=== PATIENT | female | born 1970 | race Caucasian/White ===

== ENCOUNTER 2018-05-14 15:41 | Outpatient (CLI) | payer OTHER ==
[2015-10-06 08:48] VITALS: BP 109/72
[2018-05-14 15:58] LABS: BASOPHILS % 1.3 (0.0-1.5); EOSINOPHILS % 5.6 % (0.0-6.8); MEAN CORPUSCULAR HEMOGLOBIN 30.8 pg (28.0-34.0); MONOCYTES % 5.9 % (0.0-11.0); NEUTROPHILS # 6.3 # k/uL (1.4-7.7)
[2018-05-14 16:12] LABS: eGFR (Non-African) > 60
--- NOTE | 2018-05-14 16:44 | Diagnostic Imaging Report ---
JAYRO WILLSON [facility] [id number] [facility] [address] [address] Report Submission Date: May 14, 2018 4:42:11 PM CDT Patient Study Name: ARVIN HALL Date: May 14, 2018 3:59:00 PM CDT Modality Type: DX Gender: F Description: CHEST 2VIEW : 72 Institution: [facility] Physician: JAYRO WILLSON Examination: PA and lateral chest. History: Evaluate lung [place]orence. Findings: PA and lateral views of the chest demonstrates a normal cardiac and mediastinal silhouette. No focal infiltrate. No blunting of the costophrenic margins. Osseous structures are appropriate for age. Impression: No acute pulmonary process. Electronically signed on May 14, 2018 4:42:11 PM CDT by: Brandon CHEEMA
== END 2018-05-14 15:43 ==
LOC: LAB 15:41
PROVIDERS: ATTEND Nurse Practitioner Family
DX: J06.9 Acute upper respiratory infection, unspecified (principal); R07.89 Other chest pain; R79.81 Abnormal blood-gas level
CPT/HCPCS: 36415; 71046; 80053; 82553; 84484; 85025; 85379